=== PATIENT | female | born 1955 | race Caucasian/White ===

== ENCOUNTER 2017-09-12 10:41 | Outpatient (CLI) | payer BC ==
[~2017-09-12] VITALS: Ht 172.7 cm; Wt 105.9 kg
--- NOTE | ~2017-09-12 | OP ---
PATIENT NAME: RIGOBERTO ABDI MEDICAL RECORD: [id number] :59 LOCATION:D.CAT ADMISSION DATE: SURGEON: RON SMITH MD DATE OF OPERATION: 09/12/2017 PROCEDURE: Left heart catheterization, selective coronary angiography, PTCA stent diagonal, right radial approach. CATHETERS: Radial sheath, diagnostic catheter. The procedure was well tolerated and the patient was returned to [place], sheath removed. FINDINGS: Left ventriculography in 30-degree HERNANDEZ view: Normal wall motion and normal systolic function. CORONARY ANATOMY: LEFT MAIN: Left main is free of disease. LAD: Free of disease. There is large first diagonal branch, 3.0 vessel, reaching parallel to the LAD, 90+ percent stenosis. RAMUS: There is a true ramus branch with previously placed stent proximally. There is probably about a 70% end stenosis. OM: The OM distally has, after the bifurcation of OM to circumflex system, about 80%. IMPRESSION: Critical disease, LAD diagonal. INTERVENTION: Intervention in a staged fashion using indwelling radial sheath. XB LAD 3.5 provided fair guide catheter support followed by 300 cm Whisper wire across the tightly occluded diagonal down this portion of vessel. Pre-deployment, balloon was 3.0 x 15 mm Upton balloon up to 8 atmospheres. Stent was undertaken with a 3.0 x 18 mm Strathcona drug-eluting stent up to 14 atmospheres. Final injection shows excellent resolution of 90% plus stenosis, no significant residual. GORDY flow throughout the procedure. Integrilin was used during the case. Sheath closed with TR band. Plavix was loaded in the lab. TRANSINT:[id number] Voice Confirmation ID: [id number] DOCUMENT ID: [id number] RON SMITH MD at 1114 CC: [id number] DICTATION DATE: 09/12/17 1345 TAX LAWYER: 09/12/17 1459 DEP CLI 09/12/[address] [place] [address]
--- NOTE | ~2017-09-12 | HEMODYNAMI ---
PATIENT:RIGOBERTO ABDI MEDICAL RECORD: [id number] : 59 LOCATION:J[facility] L ADMISSION DATE: 09/12/17 Generatedon:09/12/201713:38 Patient name: RIGOBERTO ABDI Patient #: [id number] SSN: : 1955 Date of study: 09/12/2017 Page: Of Hemodynamic Procedure Report Patient Data Patient Demographics Procedure consent was obtained First Name: RIGOBERTO Gender: Female Last Name: TRINIDAD : 1955 [facility] Initial: ZOILA Age: 62 year(s) Patient #: [id number] Race: Additional ID: [id number] Contact details [address]: [address] [place] [address] State: [place] City: [place] Zip code: [address] Past Medical History Allergies Allergen Reaction Date Comments Reported Iodine 09/11/2015 Other allergy 09/12/2017 contrast Admission Admission Data Admission Date: 09/12/2017 Admission Time: 10:41 Admit Source: Other Procedure Procedure Types Cath Procedure Diagnostic Procedure LHC LH w/Coronaries Sedation Charges Moderate Sedation up to 15 minutes PCI Procedure Coronary Stent Coronary Stent Initial Procedure Description Procedure Date Procedure Date: 09/12/2017 Procedure Start Time: 13:10 Procedure End Time: 13:37 Procedure Staff Name Function Ric Mcconnell MD Performing Physician Lizz Kimbrough RT Monitor Liborio Rhodes RT Scrub Ti Stone RN Nurse Procedure Data Cath Procedure Fluoroscopy Diagnostic fluoroscopy Total fluoroscopy Time: 6.5 time: 6.5 min min Diagnostic fluoroscopy Total fluoroscopy dose: 867 dose: 867 mGy mGy Contrast Material Contrast Material Type Amount (ml) Isovue 370 126 Entry Location Entry Primary Successful Side Size Upsize Upsize Entry Closure Muñoz ccessful Closure Location (Fr) 1 (Fr) 2 (Fr) Remarks Device Remarks Radial Right 6 Fr Mechanical artery Short Compression Estimated blood loss: 10 ml Diagnostic catheters Device Type Used For End Catheter Placement DIAGNOSTIC Filion 110cm 5 LV Angiography Fr catheter ([id number]) DIAGNOSTIC Filion 110cm 5 Left Coronary Fr catheter ([id number]) Angiography DIAGNOSTIC Filion 110cm 5 Right Coronary Fr catheter ([id number]) Angiography Procedure Complications No complications Procedure Medications Medication Administration Route Dosage 0.9% NaCl I.V. 100 ml/hr Oxygen etCO2 Nasal cannula 2 l/min Heparin Flush Bag added to field 2 bags (1000units/500ml NS) Lidocaine 2% added to field 20 Radial Cocktail added to field 1 syringe (Verapomil 2mg/Nitro 400mcg/Heparin 1500units) Versed I.V. 2 mg Fentanyl I.V. 100 mcg Versed I.V. 1 mg Radial Cocktail I.A. 1 syringe (Verapomil 2mg/Nitro 400mcg/Heparin 1500units) Heparin Bolus I.V. 5000 units Integrilin (Bolus I.V. 9.5 ml 2mg/ml) Integrilin (Bolus wasted 0.5 ml 2mg/ml) Plavix P.O. 600 mg Hemodynamics Rest Heart Rate: 84 (bpm) Pressure Samples Time Site Value (mmHg) Purpose Heart Use Rate(bpm) 13:13 LV 92/10,12 EDP 69 13:13 AO 96/60(75) Pullback 80 13:13 LV 95/4,9 Pullback 80 Gradients Valve Time Site 1 Site 2 Mean SEP/DFP Peak To Heart Use (mmHg) (sec/min) Peak Rate (mmHg) (bpm) Aortic 13:13 LV AO 0 7 0 80 95/4,9 96/60(75) Calculations Valve P-P Mean Valve Index Valve Source Name Gradient Area Flow (cm2) Aortic 0 0 0 0 Snapshots Pre Cath Intra NCS Post Cath Vital Signs Time Heart Resp SPO2 etCO2 NIBP (mmHg) Rhythm Pain Sedation Rate (ipm) (%) (mmHg) Status Level (bpm) 12:49:03 81 18 95 36.7 142/81(112) NSR 0 (11) 10(A) , No pain 12:53:57 86 22 95 36.7 134/75(101) NSR 0 (11) 10(A) , No pain 12:58:50 81 16 95 39.7 133/77(105) NSR 0 (11) 10(A) , No pain 13:03:43 78 17 96 39.7 135/78(101) NSR 0 (11) 10(A) , No pain 13:08:34 82 14 95 29.9 115/72(91) NSR 0 (11) 10(A) , No pain 13:13:21 86 14 91 35.9 106/57(89) NSR 0 (11) 10(A) , No pain 13:18:06 86 14 89 40.4 121/70(94) NSR 0 (11) 10(A) , No pain 13:23:44 53 24 94 30.7 166/81(107) NSR 0 (11) 10(A) , No pain 13:28:44 89 18 94 40.4 170/97(144) NSR 0 (11) 10(A) , No pain 13:33:48 89 18 96 31.4 155/81(116) NSR 0 (11) 10(A) , No pain Medications Time Medication Route Dose Verified Delivered Reason Not es Effectiveness by by 12:51:19 0.9% NaCl I.V. 100 Ti Ti Per physician ml/hr Chase Stone RN RN 12:51:30 Oxygen etCO2 2 l/min Ti Ti Per physician Nasal Chase Stone cannula RN RN 12:51:40 Heparin Flush added 2 bags Ti Ti used for Bag to Chase Stone procedure (1000units/500ml field RN RN NS) 12:51:52 Lidocaine 2% added 20ml Ti Ti for local to vial Lorigan Chase anesthetic RN RN 12:52:03 Radial Cocktail added 1 Ti Ti used for (Verapomil to syringe Lorigan Lorigan procedure 2mg/Nitro field RN RN 400mcg/Heparin 1500units) 13:08:00 Versed I.V. 2 mg Ti Ti for sedation Chase Stone RN RN 13:08:08 Fentanyl I.V. 100 mcg Ti Ti for sedation Chase Stone RN RN 13:09:51 Versed I.V. 1 mg Ti Ti for sedation Chase Stone RN RN 13:11:08 Radial Cocktail I.A. 1 Ti Ric for (Verapomil syringe Lorigan Enedina vasodilation 2mg/Nitro RN 400mcg/Heparin 1500units) 13:19:19 Heparin Bolus I.V. 5000 Ti Ti for units Chase Stone anticoagulation RN RN 13:19:40 Integrilin I.V. 9.5 ml Ti Ti for (Bolus 2mg/ml) Chase Stone antiplatelet RN RN therapy 13:21:08 Integrilin wasted 0.5 ml Ti Ti to sharp's (Bolus 2mg/ml) Chase Stone RN RN 13:33:17 Plavix P.O. 600 mg Ti Ti for Chase Stone antiplatelet RN RN therapy Procedure Log Time Note 12::08 Informed consent obtained and on chart 12:28:10 Admit Source: Other 12:28:49 Diagnostic Cath status Elective 12:28:50 Lizz Counts RT(R) sent for patient. Start room use. 12:28:54 Time tracking: Regular hours (M-F 7:00 - 5:00) 12:28:59 Plan of Care:Hemodynamics will remain stable., Cardiac rhythm will remain stable., Comfort level will be maintained., Respiratory function will remain adequate., Patient/ family verbilizes understanding of procedure., Procedure tolerated without complication., Recovers from procedure without complications.. 12:35:35 Patient received from Pre/Post Procedure Room to CCL 1 Alert and oriented. Tansferred to table in Supine position. 12:35:37 Warm blankets applied, and norbert hugger turned on for patient comfort. 12:35:38 Correct patient and procedure confirmed by team. 12:35:39 ECG and BP/O2 sat monitors applied to patient. 12:35:51 H&P Date Dictated: 09/05/2017 Within 30 days and on chart., H&P Addendum completed by physician on day of procedure. (MUST COMPLETE FOR ALL OUTPATIENTS). 12:35:54 Pre-procedure instructions explained to patient. 12:35:55 Pre-op teaching completed and patient verbalized understanding. 12:35:56 Family in waiting room. 12:35:57 Patient NPO since Midnight. 12:36:11 Patient allergic to Other allergycontrast 12:47:54 Vital chart was started 12:47:56 Baseline sample Acquired. 12:47:58 Rhythm: sinus rhythm 12:48:00 Full Disclosure recording started 12:48:02 Is the patient allergic to Iodine/contrast media? Yes. 12:48:10 Was the patient premedicated? Yes 12:48:11 Is patient on blood thinner?No 12:48:13 Patient diabetic? No. 12:48:40 Previous problem with sedation/anesthesia? Yes DIFFICULTY WAKING 12:48:42 Snore? No 12:48:43 Sleep apnea? No 12:48:45 Deviated septum? No 12:48:46 Opens mouth fully? Yes 12:48:47 Sticks out tongue? Yes 12:48:49 Airway obstruction? No ? 12:48:52 Dentures? No ? 12:48:59 Pre procedure: right dorsailis pedis pulse 2+ Normal; easily identifiable; not easily obliterated 12:49:04 Modified Tee's test Ulnar < 7 seconds 12:49:06 Patient pain scale 0/10 ?. 12:49:13 IV patent on arrival in left hand with 0.9% NaCl at [facility]. 12:49:17 Lab results completed and on chart. 12:49:23 Right Radial & Right Groin area was prepped with chlora-prep and draped in sterile fashion 12:49:24 Alarms reviewed by R. N. 12:49:24 Sharps counted by scrub and verified by R.N. 12:49:28 Use device set Radial Dx or PCI 12:49:29 ACIST Syringe (47664) opened to sterile field. 12:49:30 Medline Cath Pack ([id number]) opened to sterile field. 12:49:30 Bag Decanter (2002S) opened to sterile field. 12:49:31 DIAGNOSTIC WIRE .035 260cm J wire (490375) opened to sterile field. 12:49:32 ACIST Hand Control (66519) opened to sterile field. 12:49:32 ACIST Manifold (94087) opened to sterile field. 12:49:34 MBrace Wrist Support ([id number]) opened to sterile field. 12:49:35 SHEATH 6Fr Prelude Radial ([id number]) opened to sterile field. 12:51:19 0.9% NaCl 100 ml/hr I.V. was administered by Ti Stone RN; Per physician; 12:51:30 Oxygen 2 l/min etCO2 Nasal cannula was administered by Ti Stone RN; Per physician; 12:51:40 Heparin Flush Bag (1000units/500ml NS) 2 bags added to field was administered by Ti Stone RN; used for procedure; 12:51:52 Lidocaine 2% 20ml vial added to field was administered by Ti Stone RN; for local anesthetic; 12:52:03 Radial Cocktail (Verapomil 2mg/Nitro 400mcg/Heparin 1500units) 1 syringe added to field was administered by Ti Stone RN; used for procedure; 12:58:54 Physician paged 13:01:55 Final Timeout: patient, procedure, and site verified with staff and physician. All members of the team are in agreement. 13:02:00 Right Radial site verified by team. 13:02:03 Physical assessment completed. ASA score P 2 - A patient with mild systemic disease as per Ric Mcconnell MD. 13:02:06 Sedation plan: IV Moderate Sedation Medication:Versed, Fentanyl 13:08:00 Versed 2 mg I.V. was administered by Ti Stone RN; for sedation; 13:08:08 Fentanyl 100 mcg I.V. was administered by Ti Stone RN; for sedation; 13:09:51 Versed 1 mg I.V. was administered by Ti Stone RN; for sedation; 13:09:53 Procedure started. 13:10:06 Local anesthetic to right radial artery with Lidocaine 2% by Ric Mcconnell MD.INITIAL ACCESS ONLY 13:11:05 A 6 Fr Short sheath was inserted into the Right Radial artery 13:11:08 Radial Cocktail (Verapomil 2mg/Nitro 400mcg/Heparin 1500units) 1 syringe I.A. was administered by Ric Mcconnell MD; for vasodilation; 13:11:36 Zero performed for pressure channel P1 13:11:50 A DIAGNOSTIC Filion 110cm 5 Fr catheter (995336) was advanced over the wire and used for LV Angiography. 13:12:22 LV gram done using HERNANDEZ 13:12:31 Injector settings: Ml/sec: 7, Volume: 15, 13:12:33 LV hemodynamics recorded. 13:13:19 EF : 60 % 13:13:40 A DIAGNOSTIC Filion 110cm 5 Fr catheter (154061) was advanced over the wire and used for Left Coronary Angiography. 13:15:40 A DIAGNOSTIC Filion 110cm 5 Fr catheter (320452) was advanced over the wire and used for Right Coronary Angiography. 13:16:22 Catheter removed. 13:16:32 Use device set [place] PCI 13:16:41 INFLATOR Merit BasixCompak (BK0780) opened to sterile field. 13:16:44 WHISPER 300cm guide wire ([id number]) opened to sterile field. 13:18:11 6 Fr XBLAD 3.5 guide catheter was inserted over the wire 13:18:17 GUIDE 6FR XBLAD 3.5 catheter ([id number]) opened to sterile field. 13:19:19 Heparin Bolus 5000 units I.V. was administered by Ti Stone RN; for anticoagulation; 13:19:40 Integrilin (Bolus 2mg/ml) 9.5 ml I.V. was administered by Ti Stone RN; for antiplatelet therapy; 13:21:08 Integrilin (Bolus 2mg/ml) 0.5 ml wasted was administered by Ti Stone RN; to sharp's; 13:23:36 WHISPER wire advanced. 13:26:06 Inflate balloon Inflation number: 1 A EMERGE OTW 3.0 x 15 balloon ([id number]) was prepped and advanced across the 1st Diag, then inflated to 8 PETE for 0:15 (min:sec). 13:26:57 Inflation number: 2 The EMERGE OTW 3.0 x 15 balloon ([id number]) was reinflated across the 1st Diag, to 8 PETE for 0:19 (min:sec). 13:27:27 Balloon removed over the wire. 13:30:56 Place stent Inflation Number: 3 A SUSAN RX 3.0 x 18 stent ([id number]) was prepped and advanced across the 1st Diag. The stent was deployed at 14 PETE for 0:25 (min:sec). 13:31:32 Stent catheter was removed intact over wire. 13:32:01 Wire removed. 13:32:02 Guide catheter removed. 13:32:23 Sheath removed intact; hemostasis achieved with Mechanical Compression to the Right Radial artery. 13:32:32 Procedure ended.(Physican Out) 13:33:00 Fluoroscopy time 06.50 minutes. 13:33:03 Flurop Dose total: 867 13:33:03 Fluoroscopy dose: 867 mGy 13:33:07 Contrast amount:Isovue 370 126ml. 13:33:08 Sharps counted by scrub and verified by R.N. 13:33:11 TR band inflated with 11cc of air. 13:33:12 Insertion/operative site no bleeding no hematoma. 13:33:17 Plavix 600 mg P.O. was administered by Ti Stone RN; for antiplatelet therapy; 13:33:21 Post right radial artery:stable, clean and dry 13:33:23 Post Procedure Pulses reassessed and unchanged 13:33:29 Post-procedure physical assessment completed. ASA score P 2 - A patient with mild systemic disease as per Ric Mcconnell MD. 13:33:31 Post procedure rhythm: unchanged. 13:33:34 Estimated blood loss: 10 ml 13:33:36 Post procedure instruction explained to patient.Patient verbalizes understanding. 13:33:36 Patient needs reinforcement of post procedure teaching. 13:34:14 Procedure type changed to Cath procedure, Diagnostic procedure, LHC, LHC w/Coronaries, Sedation Charges, Moderate Sedation up to 15 minutes, PCI procedure, Coronary Stent, Coronary Stent Initial 13:35:10 Procedure Complication : No complications 13:35:14 See physician's report for complete and final results. 13:35:23 TR BAND Standard ([id number]) opened to sterile field. 13:37:28 Procedure and supply charges have been captured, reviewed, submitted and are correct. 13:37:34 Vital chart was stopped 13:37:37 Report given to Pre/Post Procedure Room. 13:37:41 Patient transfered to Pre/Post Procedure Room with Stretcher. 13:37:50 Procedure ended. 13:37:50 Full Disclosure recording stopped 13:37:53 End room use (Document Last) Intervention Summary Intervention Notes Time ActionType Lesion and Equipment Used Action# Pressure Duration Attributes 13:26:06 Inflate 1st Diag EMERGE OTW 3.0 1 8 00:15 balloon x 15 balloon ([id number]) 13:26:57 Reinflate 1st Diag EMERGE OTW 3.0 2 8 00:19 balloon x 15 balloon ([id number]) 13:30:56 Place stent 1st Diag SUSAN RX 3.0 x 3 14 00:25 18 stent ([id number]) Device Usage Item Name Manufacture Quantity Catalog Number Hospital Part Current Minimal Lot# / Charge Number Stock Stock Serial# Code ACIST Syringe Acist 1 54568 989911 820525 381640 20 (15510) Medical Systems Inc Medline Cath Cardinal 1 [id number] 399822 80754 973409 5 Pack Health ([id number]) Bag Decanter Microtek 1 2001S 720814 07630 398648 5 () Medical Inc. DIAGNOSTIC WIRE St Chucky 1 292311 546441 011329 577133 30 .035 260cm J wire (096223) ACIST Hand Acist 1 53699 782193 040875 725233 5 Control (35978) Medical Systems Inc ACIST Manifold Acist 1 13519 425116 030204 198034 5 (87590) Medical Systems Inc MBrace Wrist Advanced 1 140-0250-00 984852 94587 623449 5 Support Vascular ([id number]) Dynamics SHEATH 6Fr Merit 1 [id number] 874038 283442 501628 5 Prelude Radial Medical ([id number]) DIAGNOSTIC Terumo 1 40-0003 958574 208419 133126 5 Filion 110cm 5 Fr catheter (414629) INFLATOR Merit Merit 1 DG0736 807307 395717 716003 15 SignStorey Medical (PW8588) WHISPER 300cm Mullen 1 [id number] 227654 943167 169002 5 guide wire Vascular ([id number]) GUIDE 6FR XBLAD Cardinal 1 [id number] 605558 462648 385718 10 3.5 catheter Health (91631793) EMERGE OTW 3.0 Calera 1 [id number] 098846 612287 334168 5 [id number] x 15 balloon Scientific ([id number]) SUSAN RX 3.0 x Medtronic 1 [id number] 163927 0988227 045085 5 [id number] 18 stent ([id number]) TR BAND Terumo 1 [id number] 973793 343636 989235 40 Standard ([id number]) Signature Audit [place] Stage Time Signature Unsigned Intra-Procedure 09/12/2017 Lizz 1:38:09 PM Counts RT(R) Signatures Monitor : Lizz Signature : Counts RT Date : Time : [place] [address] [place] [address]
[~2017-09-12 10:41] MED LIST: BRILINTA90 MG PO; COZAAR100 MG PO; PROZAC20 MG PO
[2017-09-12] MEDS ORDERED: TOPROL XL25 MG PO (11:04)
[2017-09-12] MEDS ORDERED: FEMARA2.5 MG PO (11:04)
[2017-09-12] MEDS ORDERED: BAYER CHEWABLE81 MG PO (11:04)
[2017-09-12] MEDS ORDERED: HCTZ25 MG PO (11:04)
[2017-09-12 11:12] VITALS: BP 175/82; Ht 172.7 cm; Wt 105.9 kg
[2017-09-12 11:31] LABS: BASOPHILS 0.1 % (0-2); EOSINOPHILS 0.5 % (0-7); HEMATOCRIT 45.1 % (36.0-48.0); IMMATURE GRANULOCYTES 0.3 % (0-5); LYMPHOCYTES 14.1 % (15-50); MCH 30.6 pg (26.0-34.0); MCHC 35.5 g/dL (31.0-37.0); MCV 86.2 fL (80.0-100.0); MEAN PLATELET VOLUME 10.6 fL (7.4-10.4); PLATELET COUNT 253 10x3/uL (130-400); RBC 5.23 10x6/uL (4.00-5.40); RDW 12.4 % (11.5-14.5); WBC 7.9 10x3/uL (4.8-10.8)
[2017-09-12 11:38] LABS: CALC OSMOLALITY 279 mosm/kg (275-300); CALCIUM 9.7 mg/dL (8.5-10.1); CHLORIDE - SERUM 101 mmol/L (98-107); CREATININE - SERUM 0.8 mg/dL (0.6-1.3); POTASSIUM - SERUM 3.1 mmol/L (3.5-5.1); SODIUM 140 mmol/L (136-145); UREA NITROGEN 12 mg/dL (7-18); eGFR NON AFRICAN AMERICAN 77 mL/min (90-120)
[2017-09-12 11:40] LABS: GLUCOSE 122 mg/dL (74-106)
[2017-09-12] MEDS ORDERED: PLAVIX75 MG PO (13:48)
== END 2017-09-12 18:00 | disposition home or self-care (01) ==
LOC: D.CATH 10:41
PROVIDERS: Internal Medicine Interventional Cardiology
DX: I25.119 Atherosclerotic heart disease of native coronary artery with unspecified angina pectoris (principal); Z01.812 Encounter for preprocedural laboratory examination

== ENCOUNTER → 2017-09-27 10:52 | Outpatient (CLI) | payer BC ==
[~2017-09-27] VITALS: Ht 172.7 cm; Wt 105.9 kg
--- NOTE | ~2017-09-27 | HEMODYNAMI ---
PATIENT:RIGOBERTO ABDI MEDICAL RECORD: [id number] : 59 LOCATION:J[facility] L ADMISSION DATE: 09/27/17 Generatedon:09/27/201713:54 Patient name: RIGOBERTO ABDI Patient #: [id number] SSN: : 1955 Date of study: 09/27/2017 Page: Of Hemodynamic Procedure Report Patient Data Patient Demographics Procedure consent was obtained First Name: RIGOBERTO Gender: Female Last Name: TRINIDAD : 1955 [facility] Initial: ZOILA Age: 62 year(s) Patient #: [id number] Race: Additional ID: [id number] Contact details [address]: [address] [place] [address] State: [place] City: [place] Zip code: [address] Past Medical History Allergies Allergen Reaction Date Comments Reported Iodine 09/11/2015 Other allergy 09/12/2017 contrast Contrast 09/27/2017 Admission Admission Data Admission Date: 09/27/2017 Admission Time: 10:52 Procedure Procedure Types Cath Procedure Diagnostic Procedure LHC Coronaries only Sedation Charges Moderate Sedation up to 15 minutes PCI Procedure Coronary Stent Coronary Stent Initial x2 Procedure Description Procedure Date Procedure Date: 09/27/2017 Procedure Start Time: 13:13 Procedure End Time: 13:50 Procedure Staff Name Function Ric Mcconnell MD Performing Physician Zahraa Elliott RT Monitor Ti Stone RN Nurse Neida Duong RT Scrub Procedure Data Cath Procedure Fluoroscopy Diagnostic fluoroscopy Total fluoroscopy Time: 11 time: 11 min min Diagnostic fluoroscopy Total fluoroscopy dose: dose: 1017 mGy 1017 mGy Contrast Material Contrast Material Type Amount (ml) Isovue 300 133 Entry Location Entry Primary Successful Side Size Upsize Upsize Entry Closure Muñoz ccessful Closure Location (Fr) 1 (Fr) 2 (Fr) Remarks Device Remarks Radial Right 6 Fr Mechanical artery Short Compression Femoral Right 6 Fr Exoseal artery Short Estimated blood loss: 10 ml Diagnostic catheters Device Type Used For End Catheter Placement DIAGNOSTIC AR MOD 5Fr Procedure Catheter ([id number]) DIAGNOSTIC [place] 110cm 5 Procedure Fr catheter ([id number]) Procedure Complications No complications Procedure Medications Medication Administration Route Dosage 0.9% NaCl I.V. 100 ml/hr Oxygen etCO2 Nasal cannula 2 l/min Heparin Flush Bag added to field 2 bags (1000units/500ml NS) Lidocaine 2% added to field 20 Radial Cocktail added to field 1 syringe (Verapomil 2mg/Nitro 400mcg/Heparin 1500units) Versed I.V. 2 mg Radial Cocktail I.A. 1 syringe (Verapomil 2mg/Nitro 400mcg/Heparin 1500units) Versed I.V. 1 mg Heparin Bolus I.V. 5000 units Atropine I.V. 1 mg Nitroglycerin IC/IA I.C. 200 mcg Fentanyl I.V. 50 mcg Fentanyl I.V. 50 mcg Hemodynamics Rest Heart Rate: 75 (bpm) Snapshots Pre Cath Intra NCS Post Cath Vital Signs Time Heart Resp SPO2 etCO2 NIBP (mmHg) Rhythm Pain Sedation Rate (ipm) (%) (mmHg) Status Level (bpm) 12:55:08 80 21 93 30.8 135/82(106) NSR 0 (11) 10(A) , No pain 12:59:57 80 16 94 37.6 136/71(100) NSR 0 (11) 10(A) , No pain 13:04:46 72 15 94 36.8 129/66(103) NSR 0 (11) 10(A) , No pain 13:09:32 73 16 94 35.3 132/66(106) NSR 0 (11) 10(A) , No pain 13:14:17 83 15 94 35.3 124/69(96) NSR 0 (11) 10(A) , No pain 13:19:00 70 16 89 35.3 120/78(96) NSR 0 (11) 10(A) , No pain 13:24:29 104 18 92 32.3 169/105(135) NSR 0 (11) 10(A) , No pain 13:29:20 102 17 94 30.8 153/90(120) NSR 0 (11) 10(A) , No pain 13:34:13 98 10 93 15 138/78(107) NSR 0 (11) 10(A) , No pain 13:39:00 99 13 93 37.5 151/90(113) NSR 0 (11) 10(A) , No pain 13:43:49 99 13 93 35.3 143/94(115) NSR 0 (11) 10(A) , No pain 13:48:36 95 18 95 34.5 161/97(130) NSR 0 (11) 10(A) , No pain Medications Time Medication Route Dose Verified Delivered Reason Not es Effectiveness by by 12:53:44 0.9% NaCl I.V. 100 Ti Ti Per physician ml/hr Chase Stone RN RN 12:53:54 Oxygen etCO2 2 l/min Ti Ti Per physician Nasal Chase Stone cannula RN RN 12:54:08 Heparin Flush added 2 bags Ti Ti used for Bag to Chase Stone procedure (1000units/500ml field RN RN NS) 12:54:24 Lidocaine 2% added 20ml Ti Ti for local to vial Lorigan Lorigan anesthetic RN RN 12:54:39 Radial Cocktail added 1 Ti Ti for local (Verapomil to syringe Lorigan Lorigan anesthetic 2mg/Nitro RN RN 400mcg/Heparin 1500units) 13:09:30 Versed I.V. 2 mg Ti Ti for sedation Chase Stone RN RN 13:14:00 Radial Cocktail I.A. 1 Ti Ric for (Verapomil syringe Lorigan Enedina vasodilation 2mg/Nitro MARSHALL ROMAN 400mcg/Heparin 1500units) 13:14:16 Versed I.V. 1 mg Ti Ti for sedation Chase Stone RN RN 13:22:51 Heparin Bolus I.V. 5000 Ti Ti for units Lorigan Chase anticoagulation RN RN 13:23:06 Atropine I.V. 1 mg Ti Ti for arrhythmia Chase Stone RN RN 13:30:02 Nitroglycerin I.C. 200 mcg Ti Ric for IC/IA Lorigan Enedina vasodilation MARSHALL ROMAN 13:30:29 Fentanyl I.V. 50 mcg Ti Ti for sedation Chase Stone RN RN 13:49:38 Fentanyl I.V. 50 mcg Ti Ti for sedation Chase Stone RN caddy master Log Time Note 12:23:13 Diagnostic Cath status Elective 12:26:08 Zahraa Elliott RT(R) sent for patient. Start room use. 12:26:10 Time tracking: Regular hours (M-F 7:00 - 5:00) 12:26:17 Plan of Care:Hemodynamics will remain stable., Cardiac rhythm will remain stable., Comfort level will be maintained., Respiratory function will remain adequate., Patient/ family verbilizes understanding of procedure., Procedure tolerated without complication., Recovers from procedure without complications.. 12:41:28 Patient received from Pre/Post Procedure Room to CCL 1 Alert and oriented. Tansferred to table in Supine position. 12:41:30 Warm blankets applied, and norbert hugger turned on for patient comfort. 12:41:31 Correct patient and procedure confirmed by team. 12:41:33 Signed procedure consent form obtained from patient. 12:41:36 ECG and BP/O2 sat monitors applied to patient. 12:41:44 H&P Date Dictated: 09/27/2017 Within 30 days and on chart., H&P Addendum completed by physician on day of procedure. (MUST COMPLETE FOR ALL OUTPATIENTS). 12:41:46 Pre-procedure instructions explained to patient. 12:41:48 Family in waiting room. 12:41:51 Patient NPO since Midnight. 12:53:44 0.9% NaCl 100 ml/hr I.V. was administered by Ti Stone RN; Per physician; 12:53:54 Oxygen 2 l/min etCO2 Nasal cannula was administered by Ti Stone RN; Per physician; 12:54:08 Heparin Flush Bag (1000units/500ml NS) 2 bags added to field was administered by Ti Stone RN; used for procedure; 12:54:11 Vital chart was started 12:54:24 Lidocaine 2% 20ml vial added to field was administered by Ti Stone RN; for local anesthetic; 12:54:39 Radial Cocktail (Verapomil 2mg/Nitro 400mcg/Heparin 1500units) 1 syringe added to field was administered by Ti Stone RN; for local anesthetic; 12:57:04 Patient allergic to Contrast 12:57:10 Baseline sample Acquired. 12:57:15 Full Disclosure recording started 12:57:18 Is the patient allergic to Iodine/contrast media? Yes. 12:57:20 Was the patient premedicated? Yes 12:57:21 Is patient on blood thinner?Yes 12:57:25 ACC The patient was administered the following blood thiners within the last 24 hours: ACCPlavix 12:57:28 Patient diabetic? No. 12:57:32 Snore? No 12:57:34 Sleep apnea? No 12:57:35 Sticks out tongue? Yes 12:57:40 Dentures? No ? 12:57:47 Patient pain scale 0/10 ?. 12:57:56 IV patent on arrival in left forearm with 0.9% NaCl at [facility]. 12:58:03 Lab results completed and on chart. 12:58:07 Right groin area was prepped with chlora-prep and draped in sterile fashion 12:58:10 Right Radial & Right Groin area was prepped with chlora-prep and draped in sterile fashion 12:58:11 Alarms reviewed by R. N. 12:58:12 Sharps counted by scrub and verified by R.N. 12:58:12 Physician paged 12:58:33 Zero performed for pressure channel P1 12:58:38 Zero performed for pressure channel P1 13:08:20 --------ALL STOP TIME OUT------ 13:08:21 Final Timeout: patient, procedure, and site verified with staff and physician. All members of the team are in agreement. 13:08:25 Right Radial & Right Groin site verified by team. 13:08:30 Physical assessment completed. ASA score P 2 - A patient with mild systemic disease as per Ric Mcconnell MD. 13:08:35 Sedation plan: IV Moderate Sedation Medication:Versed, Fentanyl 13:09:30 Versed 2 mg I.V. was administered by Ti Stone RN; for sedation; 13:13:10 Use device set Radial Dx or PCI 13:13:14 Procedure started. 13:13:20 Local anesthetic to right radial artery with Lidocaine 2% by Ric Mcconnell MD.INITIAL ACCESS ONLY 13:13:29 A 6 Fr Short sheath was inserted into the Right Radial artery 13:14:00 Radial Cocktail (Verapomil 2mg/Nitro 400mcg/Heparin 1500units) 1 syringe I.A. was administered by Ric Mcconnell MD; for vasodilation; 13:14:12 GUIDE 6FR EBU 3.5 catheter ([id number]) opened to sterile field. 13:14:14 ACIST Syringe (64013) opened to sterile field. 13:14:15 Medline Cath Pack ([id number]) opened to sterile field. 13:14:16 Versed 1 mg I.V. was administered by Ti Stone RN; for sedation; 13:14:16 Bag Decanter (2002S) opened to sterile field. 13:14:18 DIAGNOSTIC WIRE .035 260cm J wire (803468) opened to sterile field. 13:14:19 ACIST Hand Control (79427) opened to sterile field. 13:14:20 ACIST Manifold (97057) opened to sterile field. 13:14:20 Tegaderm 4 x 4 (1626W) opened to sterile field. 13:14:22 MBrace Wrist Support ([id number]) opened to sterile field. 13:14:34 SHEATH 6Fr Prelude Radial ([id number]) opened to sterile field. 13:14:48 Proceeding to intervention. 13:15:01 6 Fr EBU 3.5 guide catheter was inserted over the wire 13:17:06 Guide catheter removed. 13:17:15 GUIDE 6FR XBLAD 3.5 catheter ([id number]) opened to sterile field. 13:17:28 6 Fr XBLAD guide catheter was inserted over the wire 13:22:06 Guide catheter removed. 13:22:38 A DIAGNOSTIC AR MOD 5Fr Catheter (458157T) was advanced over the wire and used for Procedure. 13:22:51 Heparin Bolus 5000 units I.V. was administered by Ti Stone RN; for anticoagulation; 13:23:06 Atropine 1 mg I.V. was administered by Ti Stone RN; for arrhythmia; 13:25:02 A DIAGNOSTIC [place] 110cm 5 Fr catheter (396226) was advanced over the wire and used for Procedure. 13:27:28 RCA angiography performed. 13:27:48 Catheter removed. 13:28:28 Local anesthetic to right femoral artery with Lidocaine 2% by Ric Mcconnell MD.ADDITIONAL ACCESS 13:28:38 A 6 Fr Short sheath was inserted into the Right Femoral artery 13:28:51 SHEATH 6Fr Prelude ([id number]) opened to sterile field. 13:30:02 Nitroglycerin IC/IA 200 mcg I.C. was administered by Ric Mcconnell MD; for vasodilation; 13:30:29 Fentanyl 50 mcg I.V. was administered by Ti Stone RN; for sedation; 13:31:11 GUIDE 6FR JL 4.0 catheter (AA4YR23) opened to sterile field. 13:31:42 6 Fr JL 4 guide catheter was inserted over the wire 13:32:06 Whisper wire advanced. 13:36:37 Place stent Inflation Number: 1 A SUSAN OTW 2.5 x 22 stent ([id number]) was prepped and advanced across the Mid CX. The stent was deployed at 14 PETE for 0:22 (min:sec). 13:37:33 Inflation number: 2 The stent balloon was then re-inflated across the Mid CX to 4 PETE for 0:00 (min:sec). 13:38:57 Wire removed. 13:38:58 Guide catheter removed. 13:39:01 GUIDE 6FR HS I catheter (LA6HSI) opened to sterile field. 13:39:10 6 Fr HS1 guide catheter was inserted over the wire 13:39:15 [place] Wire advanced across lesion. 13:41:21 COUGAR 300cm guide wire ([id number]) opened to sterile field. 13:43:10 WHISPER 300cm guide wire ([id number]) opened to sterile field. 13:43:38 [place] removed and Whisper going up to RCA 13:45:21 Place stent Inflation Number: 1 A SUSAN OTW 3.5 x 12 stent ([id number]) was prepped and advanced across the Mid RCA. The stent was deployed at 12 PETE for 0:42 (min:sec). 13:45:52 TR BAND Standard (CFV24URP) opened to sterile field. 13:45:59 EXOSEAL 6Fr (EX600) opened to sterile field. 13:46:18 Sheath removed intact; hemostasis achieved with Mechanical Compression to the Right Radial artery. 13:46:26 Sheath removed intact; hemostasis achieved with Exoseal to the Right Femoral artery. 13:46:31 Procedure ended.(Physican Out) 13:46:43 Fluoroscopy time 11.00 minutes. 13:46:49 Fluoroscopy dose: 1017 mGy 13:46:49 Flurop Dose total: 1017 13:46:53 Contrast amount:Isovue 300 133ml. 13:46:56 Sharps counted by scrub and verified by R.N. 13:46:58 TR band inflated with 12cc of air. 13:47:00 Insertion/operative site no bleeding no hematoma. 13:47:06 Post right femoral artery:stable 13:47:12 Post right radial artery:stable 13:47:43 Post Procedure Pulses reassessed and unchanged 13:47:46 Estimated blood loss: 10 ml 13:47:50 Post procedure instruction explained to patient.Patient verbalizes understanding. 13:49:21 Procedure type changed to Cath procedure, Diagnostic procedure, LHC, Coronaries only, Sedation Charges, Moderate Sedation up to 15 minutes, PCI procedure, Coronary Stent, Coronary Stent Initial x2 13:49:25 Patient needs reinforcement of post procedure teaching. 13:49:37 Procedure and supply charges have been captured, reviewed, submitted and are correct. 13:49:38 Fentanyl 50 mcg I.V. was administered by Ti Stone RN; for sedation; 13:50:22 Procedure Complication : No complications 13:50:25 Vital chart was stopped 13:50:29 Report given to Pre/Post Procedure Room. 13:50:32 Patient transfered to Pre/Post Procedure Room with Stretcher. 13:50:35 Procedure ended. 13:50:35 Full Disclosure recording stopped 13:50:39 End room use (Document Last) Intervention Summary Intervention Notes Time ActionType Lesion and Equipment Action# Pressure Duration Attributes Used 13:36:37 Place stent Mid CX SUSAN OTW 2.5 1 14 00:23 x 22 stent ([id number]) 13:37:33 Reinflate Mid CX SUSAN OTW 2.5 2 4 00:00 stent x 22 stent balloon ([id number]) 13:45:21 Place stent Mid RCA SUSAN OTW 3.5 1 12 00:42 x 12 stent ([id number]) Device Usage Item Name Manufacture Quantity Catalog Number Hospital Part Current Minimal Lot# / Charge Number Stock Stock Serial# Code GUIDE 6FR EBU Medtronic 1 [id number] 789125 02269 428906 3 3.5 catheter ([id number]) ACIST Syringe Acist 1 07477 155058 391885 508815 20 (64895) Medical Systems Inc Medline Cath Cardinal 1 [id number] 665127 45958 886716 5 Pack Health (GMVK48445) Bag Decanter Microtek 1 2001S 669657 23997 478682 5 (2001S) Medical Inc. DIAGNOSTIC WIRE St Chucky 1 888176 668963 071322 013205 30 .035 260cm J wire (585107) ACIST Hand Acist 1 46394 388433 491034 707697 5 Control (47051) Medical Systems Inc ACIST Manifold Acist 1 20069 188825 826562 293433 5 (08108) Medical Systems Inc Tegaderm 4 x 4 3M 1 1626W 514600 279337 807644 5 (1626W) MBrace Wrist Advanced 1 140-0250-00 031921 42299 062092 5 Support Vascular (321121102) Dynamics SHEATH 6Fr Merit 1 [id number] 150826 766325 291901 5 Prelude Radial Medical ([id number]) GUIDE 6FR XBLAD Cardinal 1 [id number] 011783 364281 247480 10 3.5 catheter Health (23747294) DIAGNOSTIC AR Cardinal 1 969151W 163966 390031 656473 15 MOD 5Fr Health Catheter (690762W) DIAGNOSTIC Terumo 1 69-4486 716003 456308 538997 5 [place] 110cm 5 Fr catheter (478411) SHEATH 6Fr Merit 1 [id number] 601575 955083 076442 5 Prelude Medical ([id number]) GUIDE 6FR JL Medtronic 1 AE2FD89 142032 59560 298877 1 4.0 catheter (QW9PS71) SUSAN OTW 2.5 x Medtronic 1 [id number] 403448 22562 699507 5 [id number] 22 stent ([id number]) GUIDE 6FR HS I Medtronic 1 LA6HSI 594398 34999 064748 1 catheter (LA6HSI) COUGAR 300cm Mullen 1 [id number] 644176 242388 875047 1 guide wire Vascular ([id number]) WHISPER 300cm Mullen 1 [id number] 088454 353427 903745 5 guide wire Vascular (5488613OL) SUSAN OTW 3.5 x Medtronic 1 [id number] 316901 1620866 072448 5 [id number] 12 stent ([id number]) TR BAND Terumo 1 [id number] 126396 634003 885074 40 Standard (QRN47WRF) EXOSEAL 6Fr Cardinal 1 EX600 932170 347042 735456 10 (EX600) Health Signature Audit Artesian Stage Time Signature Unsigned Intra-Procedure 09/27/2017 Zahraa Elliott 1:54:11 PM RT(R) Signatures Monitor : Zahraa Elliott Signature : RT Date : Time : [id number] [place] [address]
--- NOTE | ~2017-09-27 | HP ---
PATIENT: RIGOBERTO ABDI MEDICAL RECORD: [id number] ACCOUNT: [id number] LOCATION:JORGE L : 59 ADMISSION DATE: 09/27/17 HISTORY AND PHYSICAL EXAMINATION HISTORY OF PRESENT ILLNESS: A 62-year-old female with known history of coronary artery disease status post recent intervention of LAD and found to have residual disease of circumflex and being brought back for intervention, revascularization. PAST MEDICAL HISTORY: Includes: 1. History of hypertension. 2. Hyperlipidemia. SOCIAL HISTORY: , lives in [place]. She easily takes care of her ADLs. No set exercise program. PHYSICAL EXAMINATION: GENERAL: Pleasant female in no acute distress. HEENT: Normocephalic, atraumatic. NECK: No bruits noted. HEART: Regular. LUNGS: Duong clear. ABDOMEN: Soft, nontender. EXTREMITIES: Pulse 2+. No edema. IMPRESSION: The patient will be admitted for revascularization of circumflex percutaneously. TRANSINT:[id number] Voice Confirmation ID: [id number] DOCUMENT ID: [id number] RON SMITH MD at 0816 CC: [id number] DICTATION DATE: 09/27/17 1304 MODELING INSTRUCTOR: 09/27/17 1353 DEP CLI 09/27/17 [address] [place] [address]
--- NOTE | ~2017-09-27 | OP ---
PATIENT NAME: RIGOBERTO ABDI MEDICAL RECORD: [id number] :[birth year] LOCATION:D.CAT ADMISSION DATE: SURGEON: RON SMITH MD DATE OF OPERATION: 09/27/2017 PROCEDURE: PTCA to left and right coronary, circumflex, and left. The procedure was well tolerated, returned to calvert, sheath removed and ExoSeal device was placed. FINDINGS: Initially were taking guide catheter pictures of the left system; however, she began to have marked ST elevation in the right coronary distribution. We promptly gained femoral artery access, diagnostic angiography showed still a 60% to 70% lesion, thought perhaps spasm due to manipulation of the coronary area or irritation of the right coronary ostium; however, at this point felt that the right coronary, given the severity, would require intervention. We then used a hockey stick guiding catheter, was placed in right coronary ostium without difficulty followed by 300 cm Whisper wire. Stent deployed was a 3.5 x 12 mm Haverford drug-eluting stent to 14 atmospheres, shows excellent resolution of 60-70% stenosis to the right coronary, no significant residual. Next, a JL4 guiding catheter provided good guide catheter support followed by 300 cm Whisper wire was placed across the 2 separate lesions in the circumflex OM of 80%. Stent deployed was placed a 2.5 x 22 mm Haverford drug-eluting stent up to 14 atmospheres. Final injection shows excellent resolution of 2 sequential circumflex stenosis of 80%, no significant residual. GORDY flow was 3 throughout the procedure. Heparin was used in the case. Plavix had previously been loaded in the lab. Sheath was closed with ExoSeal device. TRANSINT:[id number] Voice Confirmation ID: [id number] DOCUMENT ID: [id number] RON SMITH MD at 0816 CC: [id number] DICTATION DATE: 09/27/17 1440 POTTERY KILN BUILDER: 09/27/17 1608 DEP CLI 09/27/17 [address] [place] [address]
[~2017-09-27 10:52] MED LIST changes: +BAYER CHEWABLE81 MG PO; +FEMARA2.5 MG PO; +HCTZ25 MG PO; +PLAVIX75 MG PO; +PREDNISONE20 MG PO; +TOPROL XL25 MG PO
[2017-09-27 11:34] VITALS: BP 141/79; Ht 172.7 cm; Wt 105.9 kg
[2017-09-27 11:42] LABS: BASOPHILS 0 % (0-2); EOSINOPHILS 0 % (0-7); HEMATOCRIT 42.1 % (36.0-48.0); IMMATURE GRANULOCYTES 0.2 % (0-5); LYMPHOCYTES 9.2 % (15-50); MCH 30.4 pg (26.0-34.0); MCHC 35.6 g/dL (31.0-37.0); MCV 85.2 fL (80.0-100.0); MEAN PLATELET VOLUME 10.5 fL (7.4-10.4); MONOCYTES 1.2 % (2-11); NEUTROPHILS 89.4 % (40-80); PLATELET COUNT 257 10x3/uL (130-400); RBC 4.94 10x6/uL (4.00-5.40); RDW 12.4 % (11.5-14.5); WBC 9.5 10x3/uL (4.8-10.8)
[2017-09-27 11:55] LABS: CALC OSMOLALITY 277 mosm/kg (275-300); CALCIUM 8.9 mg/dL (8.5-10.1); CARBON DIOXIDE 27.3 mmol/L (21.0-32.0); CHLORIDE - SERUM 102 mmol/L (98-107); CREATININE - SERUM 0.8 mg/dL (0.6-1.3); GLUCOSE 120 mg/dL (74-106); POTASSIUM - SERUM 3.7 mmol/L (3.5-5.1); SODIUM 138 mmol/L (136-145); UREA NITROGEN 15 mg/dL (7-18); eGFR NON AFRICAN AMERICAN 77 mL/min (90-120)
== END | disposition home or self-care (01) ==
LOC: D.CATH 10:52
PROVIDERS: Internal Medicine Interventional Cardiology
DX: I25.119 Atherosclerotic heart disease of native coronary artery with unspecified angina pectoris (principal); I10 Essential (primary) hypertension; E78.5 Hyperlipidemia, unspecified; Z95.5 Presence of coronary angioplasty implant and graft; Z01.812 Encounter for preprocedural laboratory examination

== ENCOUNTER → 2018-10-30 10:46 | Outpatient (CLI) | payer BC ==
[2017-09-27 11:34] VITALS: BMI 35.5
--- NOTE | 2018-11-03 09:24 | EC ---
PATIENT:RIGOBERTO ABID DATE OF SERVICE: 10/30/18 SEX: F MEDICAL RECORD: [id number] DATE OF : [birth year] LOCATION:D.[facility] AGE OF PATIENT: 63 ADMISSION DATE: 10/30/18 REFERRING PHYSICIAN: INTERPRETING PHYSICIAN: RON SMITH MD ECHOCARDIOGRAM REPORT ECHO CHARGES 4 ECHO COMPLETE Date: 10/30/18 CLINICAL DIAGNOSIS: CAD/ASSESS EF AND VALVES, HX OF HTN ECHOCARDIOGRAPHIC MEASUREMENTS (adult normal given) AC root (d.<3.7cm) 3.0 cm LV Septum d (<1.2 cm> 1.3 cm Valve Excursion 1.4 cm LV Septum (systole) 1.5 cm Left Atria (s.<4.0cm> 3.3 cm LVPW d(<1.2cm) 1.5 cm RV (d.<2.3cm) 3.5 cm LVPW (sytole) 1.7 cm LV diastole(<5.6CM) 4.4 cm MV E-F(>70mm/sec) cm LV systole 3.3 cm LVOT Diameter 1.9 cm MV exc.(>10mm) 1.8 cm Est.ejection fraction (50-75%) % DOPPLER: LVIT cm/sec A 71.0 cm/sec E 89.0 cm/sec LA cm/sec RVSP 33 mmHg LVOT 114 cm/sec AOP1/2T m/s Asc. Ao 145 cm/sec RVOT 72 cm/sec RA cm/sec PA 118 cm/sec AV Gradient Peak 8.41 mmHg AV Mean 4.86 mmHg AV Area 2.4 cm MV Gradient Peak 3.71 mmHg MV Mean 1.07 mmHg MV Area cm COMMENTS: Machine Guide Base Winder: 2 GALILEA HERNANDEZ Cafeteria Aide: 3 Dr. Parikh TAPE# PACS Pericardial Effusion N DATE OF SERVICE: Adequate 2D, color flow, spectral Doppler, and M-mode. LVH is present. LV internal dimensions are normal. Wall motion is normal. EF is greater than or equal to 55%. Aortic valve is tricuspid. No evidence of stenosis by Doppler interrogation. Left atrium is normal at 3.3 cm. Mitral valve shows no prolapse. Trace MR. Right-sided chambers are grossly normal. Mild TR. TRANSINT:[id number] Voice Confirmation ID: [id number] DOCUMENT ID: [id number] ECHOCARDIOGRAM REPORT [id number] RIGOBERTO ABDI GREGORY A MD at 0924 CC: [id number] DICTATION DATE: 10/31/18 1257 LETTERPRESS PRINTING MACHINIST: 10/31/18 1317 DEP CLI 10/30/18 [id number] [place] [id number]
== END | disposition home or self-care (01) ==
LOC: D.HCCARDIO 10:46
PROVIDERS: ATTEND Internal Medicine Interventional Cardiology
DX: I25.10 Atherosclerotic heart disease of native coronary artery without angina pectoris (principal)

== ENCOUNTER → 2019-11-27 08:47 | Outpatient (CLI) | payer BC ==
[2017-09-27 11:34] VITALS: BMI 35.5
--- NOTE | 2019-11-29 11:00 | EC ---
PATIENT:RIGOBERTO ABDI DATE OF SERVICE: 11/27/19 SEX: F MEDICAL RECORD: [id number] DATE OF : [birth year] LOCATION:D.[facility] AGE OF PATIENT: 64 ADMISSION DATE: 11/27/19 REFERRING PHYSICIAN: INTERPRETING PHYSICIAN: RON SMITH MD ECHOCARDIOGRAM REPORT ECHO CHARGES 4 ECHO COMPLETE Date: 11/27/19 CLINICAL DIAGNOSIS: CAD/ASSESS EF AND VALVES ECHOCARDIOGRAPHIC MEASUREMENTS (adult normal given) AC root (d.<3.7cm) 3.3 cm LV Septum d (<1.2 cm> 1.2 cm Valve Excursion 1.4 cm LV Septum (systole) 1.6 cm Left Atria (s.<4.0cm> 4.0 cm LVPW d(<1.2cm) 1.4 cm RV (d.<2.3cm) 3.5 cm LVPW (sytole) 1.6 cm LV diastole(<5.6CM) 4.5 cm MV E-F(>70mm/sec) cm LV systole 2.9 cm LVOT Diameter 1.8 cm MV exc.(>10mm) 1.9 cm Est.ejection fraction (50-75%) % DOPPLER: LVIT cm/sec A 72.0 cm/sec E 110.0 cm/sec LA cm/sec RVSP 33 mmHg LVOT 98 cm/sec AOP1/2T m/s Asc. Ao 130 cm/sec RVOT 62 cm/sec RA cm/sec PA 117 cm/sec AV Gradient Peak 6.72 mmHg AV Mean 3.72 mmHg AV Area 1.7 cm MV Gradient Peak 5.01 mmHg MV Mean 1.30 mmHg MV Area cm COMMENTS: Netsuite Developer: 2 GALILEA HERNANDEZ Leases And Land Supervisor: 3 Dr. Parikh TAPE# PACS Pericardial Effusion N DATE OF SERVICE: Adequate 2D, color-flow imaging, spectral Doppler, and M-Mode Borderline LVH. LV internal dimension is normal. Wall motion is normal. EF is greater than or equal to 55%. Aortic valve is tricuspid. No evidence of stenosis by Doppler interrogation. Left atrium is normal. Mitral valve shows no prolapse. Trace MR. Right-sided chambers are grossly normal. Mild TR. TRANSINT:[id number] Voice Confirmation ID: [id number] DOCUMENT ID: [id number] ECHOCARDIOGRAM REPORT [id number] RIGOBERTO ABDI GREGORY A MD at 1100 CC: [id number] DICTATION DATE: 11/28/1942 MATERIAL CHASER: 11/28/19 1308 DEP CLI 11/27/19 [id number] [place] [address]
== END | disposition home or self-care (01) ==
LOC: D.HCCECHO 08:47
PROVIDERS: ATTEND Internal Medicine Interventional Cardiology
DX: I25.10 Atherosclerotic heart disease of native coronary artery without angina pectoris (principal)